=== PATIENT | male | born 1960 | race American Indian/Alaskan Native ===

== ENCOUNTER 2018-03-18 13:30 | Emergency (ER) | payer MEDICAID ==
[2018-03-18 13:54] VITALS: BMI 33.0
[2018-03-18] MEDS ORDERED: Albuterol-Ipratrop 3 mg / 0.5 (3 ml) UD INH STA (14:07)
[2018-03-18] MEDS ORDERED: Albuterol-Ipratrop 3 mg / 0.5 (3 ml) UD ONE (14:24)
--- NOTE | 2018-03-18 15:15 | ED PDOC ---
HPI: CCC, URI, Sore Throat Time Seen by Provider: 03/18/18 14:02 Chief Complaint (Nursing): Cough, Cold, Congestion Chief Complaint (Provider): cough History Per: Patient History/Exam Limitations: no limitations Onset/Duration Of Symptoms: Days (3-4), Gradual Current Symptoms Are (Timing): Still Present Location Of Pain: denies: Throat, Sinus/es, Diffuse Myalgias, Headache Sick Contacts (Context): Friend(s) (usp?) Associated Symptoms: Sore Throat (scratchy), Cough. denies: Fever, Chills, Myalgias, Nasal Congestion Severity: Mild Additional Complaint(s): 57yo male c.o ongoing cough for 3-4 days. Denies sputum, fever, night sweats, malaise, SOB or hemoptysis. Denies edema, chest pain or orthopnea. Can walk a city block without symptoms. Living in [facility] for last 10 days. Concerned he may have contracted TB given living in [facility], no known TB contacts however. States he slept the first night in [facility] under the air conditioning unit, concerned that contributed to symptoms. PMD in [place] Past Medical History Reviewed: Historical Data, Nursing Documentation, Vital Signs Vital Signs: Last Vital Signs Temp 98.2 F 03/18/18 13:52 Pulse 76 03/18/18 13:52 Resp 20 03/18/18 13:52 BP 131/89 03/18/18 13:52 Pulse Ox 97 03/18/18 13:52 - Medical History PMH: CAD Other PMH: on anticoagulation; - Surgical History Surgical History: CABG Other surgeries: valve replacement - Family History Family History: States: Unknown Family Hx - Living Arrangements Living Arrangements: Other (usp) - Social History Current smoker - smoking cessation education provided: No Alcohol: None - Home Medications Home Medications: Ambulatory Orders Medication Instructions Recorded Albuterol HFA [Ventolin HFA 90 1 - 2 puff IH Q4 PRN #1 inhaler 03/18/18 mcg/actuation (8 g)] Azithromycin [Zithromax] 250 mg PO DAILY #6 tab 03/18/18 - Allergies Allergies/Adverse Reactions: Allergies Allergy/AdvReac Type Severity Reaction Status Date / Time No Known Allergies Allergy Verified 03/18/18 13:55 Review of Systems ROS Statement: Except As Marked, All Systems Reviewed And Found Negative Constitutional: Negative for: Fever ENT: Positive for: Throat Pain. Negative for: Nose Discharge, Throat Swelling Cardiovascular: Negative for: Chest Pain Respiratory: Positive for: Cough. Negative for: Shortness of Breath, SOB with Exertion Gastrointestinal: Negative for: Abdominal Pain Genitourinary Male: Negative for: Dysuria Musculoskeletal: Negative for: Neck Pain Skin: Negative for: Rash, Lesions Neurological: Negative for: Weakness, Numbness Psych: Negative for: Anxiety Physical Exam - Reviewed Nursing Documentation Reviewed: Yes Vital Signs Reviewed: Yes - Physical Exam Appears: Positive for: Well, Non-toxic, No Acute Distress Head Exam: Positive for: ATRAUMATIC, NORMAL INSPECTION, NORMOCEPHALIC Skin: Positive for: Normal Color, Warm, DRY Eye Exam: Positive for: EOMI, Normal appearance, PERRL ENT: Positive for: Normal ENT Inspection. Negative for: Pharyngeal Erythema, Tonsillar Exudate Neck: Positive for: Normal, Painless ROM Cardiovascular/Chest: Positive for: Regular Rate, Rhythm Respiratory: Positive for: Normal Breath Sounds. Negative for: Decreased Breath Sounds, Wheezing, Respiratory Distress Gastrointestinal/Abdominal: Positive for: Normal Exam, Soft. Negative for: Tenderness, Guarding Back: Positive for: Normal Inspection Extremity: Positive for: Normal ROM Neurologic/Psych: Positive for: Alert, Oriented. Negative for: Motor/Sensory Deficits - ECG O2 Sat by Pulse Oximetry: 97 Medical Decision Making Medical Decision Making: workup for cough initiated duoneb ordered for symptoms, denies smoking hx or asthmatic/copd hx. Accession No. : [id number] Patient Name / ID : COLT RAMSEY / [id number] Exam Date : 03/18/2018 14:09:40 ( Approved ) Study Comment : Sex / Age : M / 57Y Creator : Arron Garsia MD Dictator : Arron Garsia MD Pick Up Driver : Stock Supervisor : Arron Garsia MD Approver2 : Report Date : 03/18/2018 15:12:50 My Comment : HISTORY: cough COMPARISON: No prior. TECHNIQUE: Chest PA and lateral FINDINGS: LUNGS: No active pulmonary disease. PLEURA: No significant pleural effusion identified. No pneumothorax apparent. CARDIOVASCULAR: Normal. OSSEOUS STRUCTURES: Median sternotomy noted as well as prosthetic cardiac valve replacement. VISUALIZED UPPER ABDOMEN: Normal. OTHER FINDINGS: Event recorder anterior left chest wall. IMPRESSION: No acute cardiopulmonary disease appreciated. Prior prostatic cardiac valve replacement noted as well as event recorder deployment left chest wall. Disposition - Clinical Impression Clinical Impression: Cough - Patient ED Disposition Is Patient to be Admitted: No Counseled Patient/Family Regarding: Studies Performed, Diagnosis, Need For Followup, Rx Given - Disposition Disposition: Routine/Home Disposition Time: 15:10 Condition: STABLE Additional Instructions: Take medications as directed. Your primary doctor or clinic can evaluate you for PPD (TB skin test) placement. The ER does not provide this test. Return to ER for any fever, difficulty breathing, weakness, coughing up blood, or any concern. Prescriptions: Albuterol HFA [Ventolin HFA 90 mcg/actuation (8 g)] 1 - 2 puff IH Q4 PRN #1 inhaler PRN Reason: Shortness Of Breath Azithromycin [Zithromax] 250 mg PO DAILY #6 tab Instructions: Cough, Adult (DC)
[2018-03-18 15:51] VITALS: BP 129/75; PULSE 81; RESP 16; TEMP 97.9
[2018-03-18 15:54] VITALS: O2SAT 97
== END 2018-03-18 15:52 | disposition home or self-care (01) ==
LOC: H.ER 13:30
DX: R05 Cough (principal)

== ENCOUNTER 2018-03-21 07:28 | Emergency (ER) | payer MEDICAID ==
[2018-03-21 07:28] VITALS: BMI 33.0
[2018-03-21 07:38] VITALS: O2SAT 97
[2018-03-21 07:47] VITALS: RESP 18
--- NOTE | 2018-03-21 08:23 | ED PDOC ---
HPI: General Adult Time Seen by Provider: 03/21/18 07:31 Chief Complaint (Nursing): Flu-like Symptoms Chief Complaint (Provider): Flu-like Symptoms History Per: Patient History/Exam Limitations: no limitations Onset/Duration Of Symptoms: Days (x 3) Current Symptoms Are (Timing): Still Present Additional Complaint(s): 57 year old male with a history of CAD presents to the ED with flu like symptoms for the last 2 weeks. He complains of cough and congestion. He was seen in this ED three days ago and given Zithromax and an inhaler to help with his asthma. Patient lives in the nursing home and believes he caught the cold from the air conditioner. However, he had open heart surgery 3 years ago and claims that he was recently (6 months ago) notified by Dr. Golden, his heart surgeon at [facility], that there was a device used during the procedure that may have been left inside him, causing flu like symptoms. Patient reports throwing the letter away because he thought nothing of it. He is now concerned. Denies fever, throat pain, abdominal pain, nausea, vomiting and diarrhea. PMD: none provided Past Medical History Reviewed: Historical Data, Nursing Documentation, Vital Signs Vital Signs: Last Vital Signs Temp 98 F 03/21/18 08:59 Pulse 74 03/21/18 08:59 Resp 18 03/21/18 07:43 BP 110/70 03/21/18 08:59 Pulse Ox 97 03/21/18 09:00 - Medical History PMH: No Chronic Diseases, CAD - Surgical History Surgical History: CABG - Family History Family History: States: Unknown Family Hx - Home Medications Home Medications: Ambulatory Orders Medication Instructions Recorded Albuterol HFA [Ventolin HFA 90 1 - 2 puff IH Q4 PRN #1 inhaler 03/18/18 mcg/actuation (8 g)] Azithromycin [Zithromax] 250 mg PO DAILY #6 tab 03/18/18 - Allergies Allergies/Adverse Reactions: Allergies Allergy/AdvReac Type Severity Reaction Status Date / Time No Known Allergies Allergy Verified 03/21/18 07:43 Review of Systems ROS Statement: Except As Marked, All Systems Reviewed And Found Negative Constitutional: Negative for: Fever ENT: Positive for: Nose Congestion Respiratory: Positive for: Cough Gastrointestinal: Negative for: Nausea, Vomiting, Abdominal Pain, Diarrhea Physical Exam - Reviewed Nursing Documentation Reviewed: Yes Vital Signs Reviewed: Yes - Physical Exam Appears: Positive for: Non-toxic, No Acute Distress Head Exam: Positive for: ATRAUMATIC, NORMAL INSPECTION, NORMOCEPHALIC Skin: Positive for: Normal Color, Warm, Dry Eye Exam: Positive for: EOMI, Normal appearance, PERRL Neck: Positive for: Normal, Painless ROM Cardiovascular/Chest: Positive for: Regular Rate, Rhythm. Negative for: Murmur Respiratory: Positive for: Normal Breath Sounds. Negative for: Respiratory Distress Gastrointestinal/Abdominal: Positive for: Normal Exam, Soft Extremity: Positive for: Normal ROM. 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 Negative for: Motor/Sensory Deficits - ECG O2 Sat by Pulse Oximetry: 97 (RA) Pulse Ox Interpretation: Normal Medical Decision Making Medical Decision Making: Time; 08:20 --Contacted Dr. Omar Golden's office. --Dr. Golden reports that in 2014, patient had AVR and CABG done, but there was no device recall. --Patient should follow up with [facility], Dr. Carrasquillo at Time: 08:50 Patient aware of outpatinet plan. pt is awake and alert. comfortable. stable and will be discharged. Return to the ED if symptoms persist or worsen. Follow up with [facility] service [facility] and PMD. Scribe Attestation: Documented by Renetta Conrad, acting as a scribe for Kelly Dove MD Provider Scribe Attestation: All medical record entries made by the Scribe were at my direction and personally dictated by me. I have reviewed the chart and agree that the record accurately reflects my personal performance of the history, physical exam, medical decision making, and the department course for this patient. I have also personally directed, reviewed, and agree with the discharge instructions and disposition. Disposition - Clinical Impression Clinical Impression: Cough - Patient ED Disposition Is Patient to be Admitted: No Counseled Patient/Family Regarding: Studies Performed, Diagnosis, Need For Followup - Disposition Disposition: Routine/Home Disposition Time: 08:40 Condition: IMPROVED Additional Instructions: finish your course of antibiotics, follow up with your [facility] service line dr carrasquillo at [facility] at [phone] return to the ED with any worsening or concerning symptoms Instructions: Cough, Runny Nose, and the Common Cold (DC) Forms: Localist ([place]yan)
[2018-03-21 09:00] VITALS: BP 110/70; PULSE 74; TEMP 98
== END 2018-03-21 08:57 | disposition home or self-care (01) ==
LOC: H.ER 07:28
DX: R05 Cough (principal); Z95.1 Presence of aortocoronary bypass graft; J45.909 Unspecified asthma, uncomplicated